=== PATIENT | female | born 1955 | race Caucasian/White ===

== ENCOUNTER 2019-11-16 10:53 | Emergency (ER) | payer SELFPAY ==
--- NOTE | ~2019-11-16 | CT_ITS ---
EXAMINATION: CT brain wo con DATE: 11/16/2019 11:24 INDICATION: Dizziness. Headache. TECHNIQUE: Computed tomography (CT) of the head was performed without intravenous contrast. The mA wa s adjusted according to patient size. Iterative reconstruction technique was employed. The dose-lengt h product was 605.33 mGy-cm. COMPARISON: None FINDINGS: There is no intracranial hemorrhage, acute infarction, or abnormal intracranial mass lesion . The ventricles are normal in size. The orbits are normal. There is mild mucosal thickening in sphen oid sinus. The mastoid air cells are normal. IMPRESSION: 1. Normal brain. Reviewed, dictated and finalized at location A. IMPRESSION: 1. Normal brain.
--- NOTE | ~2019-11-16 | XR_ITS ---
XR chest 1V portable DATE: 11/16/2019 11:22 INDICATION: Cough, shortness of breath for 4 days. Smoker TECHNIQUE: Portable AP chest COMPARISON: None FINDINGS: Bilateral hyperinflation finding of the diaphragms consistent with COPD. Calcified pulmonar y granuloma, left upper lung. No pulmonary infiltrate or consolidation, pleural effusion or pulmonary vascular congestion or pneumothorax. No hilar or mediastinal enlargement. Heart size appears within normal range. Aortic calcification. IMPRESSION: COPD Aortic atherosclerosis No active pulmonary disease Reviewed, dictated and finalized at location A.
--- NOTE | 2019-11-16 10:56 | ECG_ITS ---
Measurements Intervals [place] Rate: 66 P: 83 MD: 152 QRS: 66 QRSD: 82 T: 64 QT: 409 QTc: 432 Interpretive Statements SINUS RHYTHM PEAKED T WAVES- CONSIDER HYPERKALEMIA OR ISCHEMIA BASELINE ARTIFACT- I, III, AVR, AVL ABNORMAL ECG Electronically Signed On 11-16-2019 12:32:34 CDT by Toney Singh D.O.
--- NOTE | 2019-11-16 10:58 | ED.DIZZY ---
HPI - Dizziness General Chief Complaint: Dizziness Stated Complaint: DIZZINESS Source: RN notes reviewed History of Present Illness HPI Narrative: Patient presents emergency department from home via EMS for dizziness. Patient states she woke this morning and was dizzy worse with getting up and ambulating. Patient states it feels like the room is spinning. Denies any fevers or chills headaches vision changes numbness or tingling in extremities chest pain shortness of breath or any other symptoms. Patient states she has been nauseous with vomiting with the symptoms. Related Data Allergies Allergy/AdvReac Type Severity Reaction Status Date / Time Penicillins Allergy Unknown WAS Verified 04/11/18 18:58 /DOES NOT REACTION Review of Systems Review of Systems: Narrative: Gen.: Denies fevers or chills Eyes: Denies eye pain or visual change ENT: Denies congestion Respiratory: Denies shortness of breath or cough CV: Denies chest pain or palpitations GI: Denies abdominal pain reports nausea vomiting denies burning, urgency, frequency or hematuria Musculoskeletal: Denies back pain or muscle pain Neuro: Reports dizziness Skin: Denies rash Except as documented, all other systems reviewed and negative [facility] Past Medical History Medical History Bronchitis Pneumonia Surgical History Surgical History (Updated 07/24/19 @ 14:43 by Kilo Day) H/O: hysterectomy Hx of tonsillectomy Social History Social History Smoking packs per day: 1 Smoking cigarettes per day: 20.0 Smoking status: Current every day smoker Tobacco type: cigarettes Gender identity (if verbalized by the patient): Female Exam Narrative: Exam Narrative: APPEARANCE: No acute distress, nontoxic, resting in bed HEENT: Normocephalic, atraumatic, OMM, TMs clear bilaterally EYES: PERRL, EOMI NECK: Supple, nontender, full range of motion without pain, no meningismus RESPIRATORY: No respiratory distress, clear to auscultation bilaterally with no rhonchi wheezing or rales CARDIOVASCULAR: RRR s murmur ABDOMINAL: Soft, nontender, nondistended MUSCULOSKELETAL: Moves all extremities. No clubbing, cyanosis or edema. NEURO: A and O ?3, following commands, speech normal, cranial nerves II through XII grossly intact,muscle strength 5 out of 5 bilateral upper and lower extremities SKIN:: Warm, dry. Normal Color PSYCHIATRIC: Normal affect/mood Course Course Emergency Course: Patient initially with minimal change following Antivert. Patient given Valium with resolution of symptoms Patient will get up and ambulate with no difficulty. States dizziness has resolved at this time Discussed with patient results of workup and diagnosis. Discussed need for follow-up with primary care, proper use of medication, and reasons to return to the emergency department. Patient understands and agrees to current treatment plan Vital Signs Vital signs: Vital Signs Temperature 97.6 F 11/16/19 11:05 Pulse Rate 66 11/16/19 11:05 Respiratory Rate 12 11/16/19 11:05 Blood Pressure 103/64 11/16/19 11:05 Pulse Oximetry 99 11/16/19 11:05 Temperature 97.6 F 11/16/19 11:05 Pulse Rate 80 11/16/19 12:30 Respiratory Rate 12 11/16/19 11:05 Blood Pressure 107/67 11/16/19 12:30 Pulse Oximetry 99 11/16/19 11:05 MDM - Dizziness MDM Narrative Medical decision making narrative: Patient's vertigo is felt to be likely peripheral in origin. There is no diplopia, dysarthria or dysphagia. Patient's gait is stable and there are no cerebral deficits to exam. Risk factor for central causes of vertigo reviewed. Patient felt likely reasonable for continued outpatient management and risks are felt to outweigh benefits for further imaging studies at this time Lab Data Result diagrams: 11/16/19 12:50 11/16/19 12:50
[2019-11-16 11:05] VITALS: BP 103/64; PULSE 66; RESP 12; TEMP 36.4; O2SAT 99
[2019-11-16] MEDS: SODIUM CHLORIDE 0.9% IV 1,000 ML 999 ML IV CONT (11:13)
[2019-11-16] MEDS: MECLIZINE HCL 25 MG TABLET PO (11:14)
[2019-11-16] MEDS: ONDANSETRON INJ 4 MG/2 ML VIAL IV PUSH (11:14)
--- NOTE | 2019-11-16 11:17 | PC.NURSE ---
CT taken Pt. for their CT of their head.
[2019-11-16 12:25] VITALS: BP 104/62; PULSE 61
[2019-11-16 12:27] VITALS: BP 107/66; PULSE 95
[2019-11-16 12:30] VITALS: BP 107/67; PULSE 80
[2019-11-16] MEDS: DIAZEPAM 2 MG TABLET PO (12:49)
[2019-11-16 12:57] LABS: Add Urine Microscopic? YES; Appearance Urine Clear (Clear); Bilirubin Urine Negative (Negative); Blood Urine Negative (Negative); Color Urine Yellow (Yellow); Glucose Urine UA Negative (Negative); Ketones Urine Trace mg/dL (Negative); Leukocyte Esterase Ur Negative LEU/UL (Negative); Mucus Urine Rare /lpf; Nitrate Urine Negative (Negative); Protein Urine Negative (Negative); RBC Urine 0-2 /hpf (0-2); Specific Grav Ur 1.018 (1.001-1.035); Squamous Epithelial Cell Urine Rare /hpf (Few); Urobilinogen Urine Negative mg/dL (<2.0); WBC Urine 0-3 /hpf
[2019-11-16 12:58] LABS: Basophils Percent Auto 0.1 % (0.2-1.2); Eosinophils Absolute Auto 2.1 K/mm3 (0-0.3); Hematocrit 50.6 % (37.0-47.0); Hemoglobin 17.3 g/dL (12.0-15.0); Immature Granulocyte Absolute 0.03 K/mm3 (0.00-0.031); Immature Granulocyte Percent A 0.3 % (0-0.5); Immature Platelet Fraction Pct 3.9 % (0.9-11.2); Lymphocytes Absolute Auto 1.78 K/mm3 (0.9-3.2); Mean Corpuscular HGB Conc 34.2 g/dl (32-36); Mean Corpuscular Hemoglobin 31.9 pg (26-34); Mean Corpuscular Volume 93.4 fl (80-100); Mean Platelet Volume 10.5 fl (7.4-10.4); Monocytes Absolute Auto 0.4 K/mm3 (0.1-0.6); Monocytes Percent Auto 4.5 % (2.6-8.5); Neutrophils Absolute Auto 4.5 K/mm3 (1.3-6.7); Neutrophils Percent Auto 51.1 % (45.5-73.1); Platelet Count Result 134 k/mm3 (150-375); Red Blood Count 5.42 M/mm3 (4.2-5.4); White Blood Count 8.9 K/mm3 (4.5-10.0)
[2019-11-16 13:06] LABS: INR 0.9; Partial Thromboplastin Time 22.9 SECONDS (22.3-36.8); Prothrombin Time 12.1 Seconds (11.1-14.7)
[2019-11-16 13:10] LABS: Albumin Level 3.9 g/dL (3.5-5.1); Alkaline Phosphatase 82 U/L (38-126); Aspartate Amino Transferase 43 U/L (14-36); Calcium 8.8 mg/dL (8.4-10.2); Chloride 108 mmol/L (98-107); Estimated CRCL calculation 48 ml/min; Estimated Glomerular Filt Rate > 60
[2019-11-16 13:20] LABS: Troponin I < 0.012 ng/mL (0.000-0.034)
[2019-11-16 13:28] LABS: Alanine Aminotransferase 48 U/L (4-35); Bilirubin,Total 0.7 mg/dL (0.2-1.3); Blood Urea Nitrogen 15 mg/dL (7-17); Carbon Dioxide 20 mmol/L (22-30); Glucose 109 mg/dL (65-105); Potassium 4.6 mmol/L (3.4-5.0); Sodium 137 mmol/L (137-145)
[2019-11-16 14:30] VITALS: BP 100/65; PULSE 73; RESP 16; O2SAT 100
== END 2019-11-16 14:30 | disposition home or self-care (01) ==
PROVIDERS: Emergency Provider Emergency Medicine
DX: R42 Dizziness and giddiness (principal); F17.210 Nicotine dependence, cigarettes, uncomplicated; R94.31 Abnormal electrocardiogram [ECG] [EKG]
CPT/HCPCS: 36415; 70450; 71045; 80053; 81001; 84484; 85025; 85055; 85610; 85730; 93005; 96361; 96374; 96375; 99284; A9270; J0131; J2405; J7030

== ENCOUNTER 2022-05-20 17:37 | Emergency (ER) | payer MEDICARE, MEDICAID, SELFPAY ==
[2022-05-20] VITALS (7 sets, daily range): BP systolic 98–103; BP diastolic 53–69; PULSE 86–117; RESP 17–28; TEMP 36.2–36.9; O2SAT 95–99
--- NOTE | ~2022-05-20 | XR_ITS ---
EXAMINATION: XR chest 2V Exam Date/Time: 05/20/2022 18:10 CDT HISTORY: sob Comparison: 11/16/2019, 07/24/2019. RESULT: Lines, tubes, and devices: Absent right breast shadow. Lungs and pleura: Mild emphysematous/senescent change. New 9 mm left lower lobe nodular opacity, pos sibly localizing anteriorly in the lateral view. No focal consolidation. Cardiomediastinal silhouette: Stable. Other: No acute osseous or upper abdominal finding. IMPRESSION: No acute cardiopulmonary process. Possible new pulmonary nodule, recommend nonemergent, outpatient lo w-dose CT of the chest without contrast for further evaluation. Reviewed, dictated and finalized at location K. IMPRESSION: No acute cardiopulmonary process. Possible new pulmonary nodule, recommend none mergent, outpatient low-dose CT of the chest without contrast for further evalu ation.
--- NOTE | 2022-05-20 17:44 | ECG_ITS ---
Measurements Intervals [place] Rate: 107 P: 85 CA: 143 QRS: 70 QRSD: 70 T: 66 QT: 321 QTc: 430 Interpretive Statements SINUS TACHYCARDIA POSSIBLE LEFT ATRIAL ENLARGEMENT BASELINE ARTIFACT- II, III, AVL, AVF, V4-V6 ABNORMAL ECG COMPARED TO ECG 11/16/2019 11:03:10 SINUS TACHYCARDIA NOW PRESENT Electronically Signed On 05-20-2022 20:23:40 CDT by Toney Singh D.O.
[2022-05-20 18:04] LABS: Basophils Percent Auto 1.2 % (0.2-1.2); Eosinophils Percent Auto 0.4 % (0-4.4); Hematocrit 45.5 % (37.0-47.0); Hemoglobin 15.7 g/dL (12.0-15.0); Immature Granulocyte Absolute 0.01 K/mm3 (0.00-0.031); Immature Granulocyte Percent A 0.4 % (0-0.5); Immature Platelet Fraction Pct 6.9 % (0.9-11.2); Lymphocytes Absolute Auto 1.11 K/mm3 (0.9-3.2); Lymphocytes Percent Auto 45.7 % (18.3-44.2); Mean Corpuscular HGB Conc 34.5 g/dl (32-36); Mean Corpuscular Hemoglobin 35.7 pg (26-34); Mean Corpuscular Volume 103.4 fl (80-100); Mean Platelet Volume 10.8 fl (7.4-10.4); Monocytes Absolute Auto 0.4 K/mm3 (0.1-0.6); Monocytes Percent Auto 15.2 % (2.6-8.5); Neutrophils Absolute Auto 0.9 K/mm3 (1.3-6.7); Neutrophils Percent Auto 37.1 % (45.5-73.1); Platelet Count Result 100 k/mm3 (150-375); Red Cell Distribution Width 17.9 % (11.5-14.5); White Blood Count 2.4 K/mm3 (4.5-10.0)
[2022-05-20 18:13] LABS: Alanine Aminotransferase 75 U/L (6-35); Albumin Level 4.1 g/dL (3.5-5.1); Alkaline Phosphatase 87 U/L (38-126); Anion Gap 10 mmol/L (8-16); Aspartate Amino Transferase 85 U/L (14-36); Bilirubin,Total 0.7 mg/dL (0.2-1.3); Blood Urea Nitrogen 20 mg/dL (7-17); Calcium 8.9 mg/dL (8.4-10.2); Carbon Dioxide 26 mmol/L (22-30); Chloride 103 mmol/L (98-107); Estimated CRCL calculation 42 ml/min; Estimated Glomerular Filt Rate > 60; Glucose 164 mg/dL (65-110); Potassium 3.9 mmol/L (3.4-5.0); Sodium 139 mmol/L (137-145)
--- NOTE | 2022-05-20 18:43 | ED.GENADULT ---
HPI - General Adult General Chief complaint: Shortness of Breath/Dyspnea Stated complaint: , RUNNY NOSE DYSPNEA, CANCER W/METS Time Seen by Provider: 05/20/22 17:59 History of Present Illness HPI narrative: 66-year-old female with history of metastatic breast cancer presented to the emergency department for evaluation of a possible worsening aspiration ammonia. Patient states few weeks ago she was not feeling well and had follow-up and ultimately got a CT scan by her oncologist. They were concerned for the possibility of underlying aspiration pneumonia so patient was on doxycycline for the last 2 weeks. Patient recently completed these antibiotics and states that she still has significant cough and some shortness of breath. Patient is on oral chemotherapy and does 3 weeks on 1 week off. Patient is about to complete her 1 week off and is about to start her 3 weeks from tomorrow. Patient follows up with Dr. Everett at [facility] for her stage IV breast cancer. Related Data Allergies Allergy/AdvReac Type Severity Reaction Status Date / Time Penicillins Allergy Unknown WAS Verified 05/20/22 18:02 /DOES NOT REACTION Review of Systems Review of Systems: CONSTITUTIONAL: Denies fever, chills, or sweats. EYES: Denies visual changes, redness, or discharge. ENT: Denies rhinorrhea, congestion, sore throat, or otalgia. CARDIOVASCULAR: Denies chest pain, palpitations, or edema. RESPIRATORY: See HPI GASTROINTESTINAL: Denies abdominal pain, nausea, vomiting, or diarrhea. GENITOURINARY: Denies dysuria or hematuria. SKIN: Denies rash or itching. MUSCULOSKELETAL: Denies back pain, joint pain, or myalgia. NEUROLOGIC: Denies headache, numbness, or weakness. [facility] Past Medical History Medical History (Updated 05/20/22 @ 20:44 by Logan Brand MD) Bronchitis Pneumonia Surgical History Surgical History (Updated 07/24/19 @ 14:43 by Kilo Day) H/O: hysterectomy Hx of tonsillectomy Social History Social History Smoking packs per day: 1 Smoking cigarettes per day: 20.0 Smoking status: Current every day smoker Tobacco type: cigarettes Gender identity (if verbalized by the patient): Female Exam Narrative: APPEARANCE: Well appearing, no pain, no distress, well-nourished. HEAD: normocephalic, atraumatic. EYES: PERRLA/EOMI, conjunctivae clear. NOSE: Normal no drainage NECK: Supple. No adenopathy, no masses. RESPIRATORY: Airway patent, respirations nonlabored. Clear to auscultation bilaterally, no rales, rhonchi, wheezing. CARDIOVASCULAR: Regular rate and rhythm without murmurs rubs or gallops. ABDOMINAL: Soft, nontender, nondistended, normal bowel sounds MUSCULOSKELETAL: Moves all extremities. Strength/ROM intact, No edema, No calf tenderness. NEURO: Alert. Cranial nerves II through XII intact. Grossly intact Course Course Emergency Course: Patient's vital signs were within normal limits. Patient was saturating well on room air. Patient was treated with an epidural nebulizer and states she feels improved. Patient does have albuterol inhaler at home but has not been using it with a spacer. Patient's RSV, influenza and COVID were negative. Patient recently completed a course of antibiotics. Chest x-ray showed no evidence of a focal pneumonia. Patient was encouraged of close follow-up with her primary care physician. All question concerns were addressed. Vital Signs Vital signs: Vital Signs Temperature 97.2 F L 05/20/22 17:42 Pulse Rate 110 H 05/20/22 17:42 Respiratory Rate 26 H 05/20/22 17:42 Blood Pressure 98/53 L 05/20/22 17:42 Pulse Oximetry 99 05/20/22 17:42 Oxygen Delivery Room Air 05/20/22 17:42 Temperature 98.4 F 05/20/22 18:01 Pulse Rate 98 05/20/22 19:08 Respiratory Rate 23 H 05/20/22 19:08 Blood Pressure 102/58 L 05/20/22 19:08 Pulse Oximetry 95 05/20/22 19:08 Oxygen Delivery Room Air 11
[2022-05-20] MEDS: BENZONATATE 100 MG CAPSULE PO (18:53)
[2022-05-20] MEDS: ALBUTEROL SULFATE NEB 2.5 MG/3 ML INH 5 MG INHALATION (18:56)
[2022-05-20 20:39] LABS: Influenza A QL RT-PCR Negative (Negative); Influenza B QL RT-PCR Negative (Negative); RSV RNA, RT-PCR Negative (Negative); SARS-CoV-2 RNA PCR Negative
== END 2022-05-20 21:07 | disposition home or self-care (01) ==
PROVIDERS: Emergency Medicine; Emergency Provider Emergency Medicine; PCP Nurse Practitioner Family
DX: R05.9 Cough, unspecified (principal); C50.919 Malignant neoplasm of unspecified site of unspecified female breast; C79.9 Secondary malignant neoplasm of unspecified site; Z20.822 Contact with and (suspected) exposure to COVID-19; Z90.710 Acquired absence of both cervix and uterus; F17.210 Nicotine dependence, cigarettes, uncomplicated; Z87.01 Personal history of pneumonia (recurrent); Z79.899 Other long term (current) drug therapy; R00.0 Tachycardia, unspecified; R94.31 Abnormal electrocardiogram [ECG] [EKG]; R91.8 Other nonspecific abnormal finding of lung field
CPT/HCPCS: 36415; 71046; 80053; 85025; 85055; 87502; 87637; 93005; 94640; 99284; A9270; U0003; U0005